=== PATIENT | female | born 1985 | race Caucasian/White ===

== ENCOUNTER 2024-04-16 09:37 | Outpatient (AMB) | payer OTHER, SELFPAY ==
--- NOTE | 2024-04-16 09:31 | A.OFFPC_ITS ---
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 Intake Note: New patient visit Running Specialist Required: No Allergies No Known Allergies [No Known Allergies*] Allergy (Verified 04/16/24 09:32) Tobacco use date assessed: 04/16/24 Dental Screening Dental Screen Date: 04/16/24 Did you have a dental visit in the last 12 months?: No Did you have a dental problem in the last 6 months where you did not have access to dental care?: No Was dental information given to patient?: No HPI HPI Comments History of Present Illness Details The patient is a 39 year old female with a past medical history of allergies, COVID 19 presenting to [facility] She had COVID after which she has been experiencing fatigue, polyarthralgia, brain fog. Discussed qEEG, stimulants, wellbutrin, LDN. Labs ordered ROS see HPI PHYSICAL EXAM: GENERAL: Alert and oriented x 3. NAD EYES: EOMI. Anicteric. HENT: Moist mucous membranes. No scleral icterus. No cervical lymphadenopathy. LUNGS: Clear to auscultation bilaterally. CARDIOVASCULAR: Regular rate and rhythm. No murmur. No JVD. ABDOMEN: Soft, non-tender +bs EXTREMITIES: No edema. Non-tender. SKIN: No rashes or lesions. Warm. NEUROLOGIC: No focal neurological deficits. CN II-XII grossly intact PSYCHIATRIC: Cooperative. Appropriate mood and affect [facility] Medical History (Updated 04/16/24 @ 10:51 by Christy Bowman MD) Asthma Allergic rhinitis Surgical History (Updated 04/16/24 @ 09:35 by Marilee Traylor CMA) History of dilatation and curettage H/O cone biopsy of cervix Family History (Updated 04/16/24 @ 09:34 by Marilee Traylor CMA) Mother Dementia Father Diabetes Hyperlipidemia Social History (Updated 04/16/24 @ 09:33 by Marilee Traylor CMA) Housing: House Patient Tobacco Use Status: Former Tobacco user (quit over 10 years ago) Cigarettes Per Day: 5 Years Smoked: 4 e-Cigarette/Vaping Use: Never Used Second Hand Smoke Exposure: No service: No Current occupational status: employed 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 How often do you have a drink containing alcohol?: Monthly or less 2. How many drinks containing alcohol do you have on a typical day when you are drinking?: 3 or 4 3. How often do you have six or more drinks on one occasion?: Never Total Score: 2 Physical exam (Primary Care) Vital Signs: Last Vital Signs Temp 98.2 F 04/16/24 09:49 Pulse 68 04/16/24 09:49 Resp 12 04/16/24 09:49 BP 94/68 04/16/24 09:49 Pulse Ox 98 04/16/24 09:49 Oxygen Delivery Method Room Air 04/16/24 09:49 BMI result Body Mass Index 30.7 Tobacco/Smoking Status: Tobacco use Status Tobacco use date assessed 04/16/24 04/16/24 09:36 Patient Tobacco Use Status Former Tobacco user (quit 04/16/24 09:53 over 10 years ago) e-Cigarette/Vaping Use Never Used 04/16/24 09:36 Assessment and Plan Assessment & Plan (1) Polyarthralgia: Code(s): M25.50 - Pain in unspecified joint Plan: Labs ordered. Trial LDN (2) Post covid-19 condition, unspecified: Code(s): U09.9 - Post COVID-19 condition, unspecified Plan: Start wellbutrin 150 daily for 7 days, then increase to 300mg daily. LDN ordered Short term follow up Plan 39 y/o to establish care. Past medical, surgical, social and family history reviewed. Chart updated. Orders: Orders TSH reflex Free T4 04/16/24 R41.840 - Attention and concentration deficit, R53.83 - Other fatigue, R63.5 - Abnormal weight gain, U09.9 - Post COVID-19 condition, unspecified Vitamin B12 and Folate 04/16/24 R41.840 - Attention and concentration deficit, R53.83 - Other fatigue, R63.5 - Abnormal weight gain, U09.9 - Post COVID-19 condition, unspecified IRON PROFILE 04/16/24 R41.840 - Attention and concentration deficit, R53.83 - Other fatigue, R63.5 - Abnormal weight gain, U09.9 - Post COVID-19 condition, unspecified Rheumatoid Factor 04/16/24 M25.50 - Pain in unspecified joint, R53.83 - Other fatigue, R63.5 - Abnormal weight gain Erythrocyte Sedimentation Rate 04/16/24 M25.50 - Pain in unspecified joint, R53.83 - Other fatigue, R63.5 - Abnormal weight gain Complete Blood Count Auto Diff 04/16/24 R41.840 - Attention and concentration deficit, R53.83 - Other fatigue, R63.5 - Abnormal weight gain, U09.9 - Post COVID-19 condition, unspecified Comprehensive Met. Panel 04/16/24 R41.840 - Attention and concentration deficit, R53.83 - Other fatigue, R63.5 - Abnormal weight gain, U09.9 - Post COVID-19 condition, unspecified Lipid Panel 04/16/24 R41.840 - Attention and concentration deficit, R53.83 - Other fatigue, R63.5 - Abnormal weight gain, U09.9 - Post COVID-19 condition, unspecified Lyme IgG/IgM w/reflex to WB 04/16/24 R41.840 - Attention and concentration deficit, R53.83 - Other fatigue, R63.5 - Abnormal weight gain, U09.9 - Post COVID-19 condition, unspecified Cyclic Citrullinated Peptide 04/16/24 M25.50 - Pain in unspecified joint, R53.83 - Other fatigue, R63.5 - Abnormal weight gain Magnesium 04/16/24 E83.40 - Disorders of magnesium metabolism, unspecified Medications: New lorazepam 0.5 mg PO BID PRN 60 tabs 0RF anxiety 30 days naltrexone 3 mg (2 x 1.5 mg) PO DAILY 180 caps 3RF 90 days M25.50 - Pain in unspecified joint, R41.840 - Attention and concentration deficit, U09.9 - Post COVID-19 condition, unspecified bupropion HCl XL 150 mg PO DAILY 7 tabs 0RF bupropion HCl XL 300 mg PO DAILY 90 tabs 3RF Coding Level of Care Code New Pt Level 4 (26102) Complex EM visit Add On G2211 Diagnoses Polyarthralgia M25.50 Post covid-19 condition, unspecified U09.9
[2024-04-16 09:49] VITALS: BP 94/68; PULSE 68; RESP 12; TEMP 36.8; O2SAT 98; BMI 30.7
== END 2024-04-16 10:56 | disposition home or self-care (01) ==
PROVIDERS: Visit Provider Internal Medicine
DX: M25.50 Pain in unspecified joint (principal); U09.9 Post COVID-19 condition, unspecified

== ENCOUNTER → 2024-04-16 09:37 | Outpatient (BNVA) | payer OTHER, SELFPAY | PROVIDERS: Visit Provider Internal Medicine | DX: M25.50 Pain in unspecified joint (principal); U09.9 Post COVID-19 condition, unspecified | CPT/HCPCS: 99202 ==

== ENCOUNTER 2024-04-16 11:05 | Outpatient (REF) | payer OTHER, SELFPAY ==
[2024-04-16 14:40] LABS: MANUAL DIFF FLAG NO
[2024-04-16 14:43] LABS: Basophils Percent Auto 0.8 % (0-2); Eosinophils Absolute Auto 0.1 X10*3/uL (0.0-0.4); Eosinophils Percent Auto 1.6 % (0-4); Hematocrit 37.6 % (37.0-47.0); Hemoglobin 12.7 g/dl (12.0-16.0); Imm Gran Abs Auto 0.03 X10*3/uL (0.00-0.03); Imm Gran Pct Auto 0.6 % (0.0-0.4); Lymphocytes Absolute Auto 1.5 X10*3/uL (1.2-4.9); Lymphocytes Percent Auto 29.6 % (20-40); Mean Corpuscular HGB Conc 33.8 g/dl (31.0-35.0); Mean Corpuscular Volume 94.7 fL (80.0-98.0); Mean Platelet Volume 10.3 fL (9.4-12.3); Monocytes Absolute Auto 0.5 X10*3/uL (0.1-1.2); Monocytes Percent Auto 9.3 % (2-11); Neutrophils Absolute Auto 2.9 x10*3/uL (2.0-8.3); Neutrophils Percent Auto 58.1 % (45-73); Platelet Count 296 X10*3/uL (160-400); Red Blood Count 3.97 X10*6/uL (4.20-5.50); Red Cell Distribution Width 12.5 % (11.0-16.0)
[2024-04-16 15:29] LABS: Erythrocyte Sedimentation Rate 4 MM/HR (0-20)
[2024-04-16 17:44] LABS: Rheumatoid Factor < 13.0 IU/mL (<15.0)
[2024-04-16 18:21] LABS: Folate 9.4 ng/mL (> or = 4.0); Vitamin B12 565 pg/mL (200-900)
[2024-04-16 18:29] LABS: Alanine Aminotransferase 16 U/L (0-31); Albumin Level 4.5 g/dL (3.5-5.0); Alkaline Phosphatase 50 U/L (39-117); Anion Gap 11 (12-20); Aspartate Amino Transferase 16 U/L (5-31); Bilirubin Total 0.5 mg/dL (0.0-1.0); Blood Urea Nitrogen 13 mg/dL (9-16); Calcium 9.4 mg/dL (8.4-10.2); Carbon Dioxide 26 mmol/L (22-29); Chloride 106 mmol/L (96-108); Cholesterol 175 mg/dL (<200); Estimated Glomerular Filt Rate > 60; Glucose Random 83 mg/dL (60-115); HDL Cholesterol 70 mg/dL (>40); Iron 123 mcg/dL (30-160); LDL Cholesterol Calculated 85 mg/dL (<100); Magnesium 2.2 mg/dL (1.6-2.6); Percent Iron Saturation 40 % (15-50); Potassium 4.1 mmol/L (3.3-5.1); Sodium 139 mmol/L (135-145); TSH reflex Free T4 1.45 uIU/mL (0.32-4.0); Total Iron Binding Capacity 306 mcg/dL (228-428); Total Protein 7.2 g/dL (6.5-8.0); Triglycerides 102 mg/dL (<150); Unsaturated Iron Binding 183 ug/dL
[2024-04-17 20:07] LABS: Lyme Abs Screen <0.90 index
[2024-04-18 06:24] LABS: Cyclic Citrullinated Peptide <16 UNITS
== END 2024-04-16 11:06 | disposition home or self-care (01) ==
LOC: HO.WFDLDS 11:05
PROVIDERS: Visit Provider Internal Medicine
DX: R41.840 Attention and concentration deficit (principal); U09.9 Post COVID-19 condition, unspecified; R53.83 Other fatigue; R63.5 Abnormal weight gain; M25.50 Pain in unspecified joint; E83.40 Disorders of magnesium metabolism, unspecified
CPT/HCPCS: 36415; 80053; 80061; 82607; 82746; 83540; 83735; 84443; 85025; 85652; 86200; 86431; 86617; 86618

== ENCOUNTER → 2024-05-20 16:00 | Outpatient (AMB) | payer OTHER, SELFPAY ==
--- NOTE | 2024-05-20 15:46 | MHC.PC.OV ---
Intake Visit Reasons: f/up 1/2 hour telephone or in person Intake Note: Medication follow up Allergies No Known Allergies [No Known Allergies*] Allergy (Verified 05/20/24 15:56) Tobacco use date assessed: 04/16/24 Dental Screening Dental Screen Date: 04/16/24 HPI HPI Comments History of Present Illness Details The patient is a 39 year old female with a past medical history of allergies, COVID 19 presenting for follow up Last visit to establish care She had COVID after which she has been experiencing fatigue, polyarthralgia, brain fog. Discussed qEEG, stimulants, wellbutrin, LDN. Labs ordered Labs reviewed and normal She started wellbutrin-she does feel improvement in concentration and energy on 150mg daily. She has not picked up the LDN yet but does plan on doing so ROS see HPI PHYSICAL EXAM: telehealth [facility] Medical History (Updated 05/23/24 @ 09:57 by Christy Bowman MD) Asthma Allergic rhinitis Surgical History (Updated 04/16/24 @ 09:35 by Marilee Traylor CMA) History of dilatation and curettage H/O cone biopsy of cervix Family History (Updated 04/16/24 @ 09:34 by Marilee Traylor CMA) Mother Dementia Father Diabetes Hyperlipidemia Social History (Updated 04/16/24 @ 09:33 by Marilee Traylor CMA) Housing: House Patient Tobacco Use Status: Former Tobacco user (quit over 10 years ago) Cigarettes Per Day: 5 Years Smoked: 4 e-Cigarette/Vaping Use: Never Used Second Hand Smoke Exposure: No service: No Current occupational status: employed 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 Current occupational exposures/hazards: No Cognitive needs: No Hearing needs: No Vision needs: No Physical exam (Primary Care) Tobacco/Smoking Status: Tobacco use Status Tobacco use date assessed 04/16/24 05/20/24 15:47 Patient Tobacco Use Status Former Tobacco user (quit 05/20/24 15:47 over 10 years ago) e-Cigarette/Vaping Use Never Used 05/20/24 15:47 Telehealth Telehealth [facility]health [facility] Location of provider rendering services: practice address Location of patient: address on file Patient Identification confirmed using: Name, : Yes Telehealth method: voice only Patient verbally consented to treatment: Yes Patient verbally consented to billing insurance company: Yes Patient informed of any privacy concerns related to visit: Yes Minutes spent on Phone/Video with Pt.: 23 Coding Level of Care Code Est Pt Level 4 (77471) Diagnoses Other post infection and related fatigue syndromes G93.39 Fatigue type: other post infection and related fatigue syndromes Post-COVID chronic concentration deficit R41.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 She will try LDN (2) Post-COVID chronic concentration deficit: Code(s): R41.840 - Attention and concentration deficit; U09.9 - Post COVID-19 condition, unspecified Category: Medical Plan: see above Medications: Refilled bupropion HCl XL 150 mg PO DAILY 90 tabs 3RF [naltrexone 2mg] Naltrexone 2mg oral daily Dispense 90 day supply 180mg 180 ea 3RF M25.50 - Pain in unspecified joint, U09.9 - Post COVID-19 condition, unspecified Discontinued bupropion HCl XL Discontinued Reason: Doctor's Order 300 mg PO DAILY 90 tabs 3RF
== END ==
LOC: HO.HMCFM 16:00
PROVIDERS: PCP Internal Medicine; Visit Provider Internal Medicine
DX: G93.39 Other post infection and related fatigue syndromes (principal); R41.840 Attention and concentration deficit; U09.9 Post COVID-19 condition, unspecified

== ENCOUNTER → 2024-05-20 16:00 | Outpatient (BNVA) | payer OTHER, SELFPAY | PROVIDERS: PCP Internal Medicine; Visit Provider Internal Medicine | DX: U09.9 Post COVID-19 condition, unspecified (principal); G93.39 Other post infection and related fatigue syndromes; R41.840 Attention and concentration deficit; M25.50 Pain in unspecified joint | CPT/HCPCS: 99212 ==

== ENCOUNTER 2024-06-11 13:53 | Outpatient (AMB) | payer OTHER, SELFPAY ==
--- NOTE | 2024-06-11 14:03 | MHC.PC.OV ---
Vital Signs 06/11/24 14:05 Height 5 ft 1.1 in Weight 155 lb BMI 29.2 BP 102/64 Blood Pressure Location Lt brachial Position Sitting Pulse 83 Pulse Source Pulse Oximeter Pulse Oximetry (%) 96 Oxygen Delivery Method Room Air Intake Visit Reasons: Regular visit , coughing Intake Note: Cyst on left hand. 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 The cyst has been recurrent for the past 10 to 15 years, fluctuating in presence. Recently, it has been present for approximately one month, with exacerbation primarily occurring at night over the past three weeks. The patient initially described the pain as sharp, which later evolved into a more generalized ache. The cyst is located on her dominant, left hand, causing discomfort during daily activities. In the past, she applied self-treatment by manually impacting the cyst, but it has recurred She had COVID after which she has been experiencing fatigue, polyarthralgia, brain fog. Discussed qEEG, stimulants, wellbutrin, LDN. Labs ordered Labs reviewed and normal She started wellbutrin-she does feel improvement in concentration and energy on 150mg daily. She has not picked up the LDN yet but does plan on doing so ROS see HPI PHYSICAL EXAM: GENERAL: Alert and oriented x 3. NAD EYES: EOMI. Anicteric. HENT: Moist mucous membranes. No scleral icterus. No cervical lymphadenopathy. LUNGS: Clear to auscultation bilaterally. CARDIOVASCULAR: Regular rate and rhythm. No murmur. No JVD. ABDOMEN: Soft, non-tender +bs EXTREMITIES: No edema. Non-tender. SKIN: 1cm cyst with venous discoloration of left palm NEUROLOGIC: No focal neurological deficits. CN II-XII grossly intact PSYCHIATRIC: Cooperative. Appropriate mood and affect [facility] Medical History (Updated 06/11/24 @ 14:19 by Christy Bowman MD) Asthma Allergic rhinitis Surgical History (Updated 04/16/24 @ 09:35 by Marilee Traylor CMA) History of dilatation and curettage H/O cone biopsy of cervix Family History (Updated 04/16/24 @ 09:34 by Marilee Traylor CMA) Mother Dementia Father Diabetes Hyperlipidemia Social History (Updated 06/11/24 @ 14:05 by Marilee Traylor CMA) Housing: House Alcohol intake: current Patient Tobacco Use Status: Former Tobacco user (quit over 10 years ago) Cigarettes Per Day: 5 Years Smoked: 4 e-Cigarette/Vaping Use: Never Used Second Hand Smoke Exposure: No Substance Use Type: Marijuana service: No Current occupational status: employed 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 [employer] Current occupational exposures/hazards: No Cognitive needs: No Hearing needs: No Vision needs: No Questionnaire Thrive Questionnaire Date Thrive assessed: 04/16/24 I am a: Patient What is your living situation today?: I have a steady place to live Within the past 12 months, did the food you bought not last and you didn't have the money to get more?: Never true Within the past 12 months, did you worry whether your food would run out before you got money to buy more?: Never true Do you have trouble paying for medicines?: No Do you have trouble getting transportation to medical appointments?: No Do you have trouble paying your heating and electricity bill?: No Do you have trouble taking care of your child, family member or friend?: No Do you have trouble with day-to-day activities such as bathing, preparing meals, shopping, managing finances, etc.?: No Are you currently unemployed and looking for a job?: No Are you interested in more education?: No Please select the resources that you would like help with: None Currently or been in a relationship where the following occur: No concerns reported THRIVE Score: 0 ANTELMO-7 AMB Questionnaire ANTELMO-7 Becoming easily annoyed or irritable: 2 = More than half the days Source: Developed by Drs. Keyur Christie, Kelsy Jon, Froylan Yeh and colleagues, with an educational mika from [employer]. Physical exam (Primary Care) Vital Signs: Last Vital Signs Pulse 83 06/11/24 14:05 BP 102/64 06/11/24 14:05 Pulse Ox 96 06/11/24 14:05 Oxygen Delivery Method Room Air 06/11/24 14:05 BMI result Body Mass Index 29.2 Tobacco/Smoking Status: Tobacco use Status Tobacco use date assessed 04/16/24 06/11/24 14:08 Patient Tobacco Use Status Former Tobacco user (quit 06/11/24 14:08 over 10 years ago) e-Cigarette/Vaping Use Never Used 06/11/24 14:08 Thrive Assessment: Date of Thrive Assessment Date Thrive assessed 04/16/24 06/11/24 14:08 Currently or been in a relationship where the following occur: No concerns reported Coding Level of Care Code Est Pt Level 4 (46237) Diagnoses Left hand pain M79.642 Assessment & Plan Assessment & Plan (1) Left hand pain: Code(s): M79.642 - Pain in left hand Category: Medical Plan: Referral to hand surgery placed for evaluation Orders: Referrals Hand Surgery Referral M79.642 - Pain in left hand, M85.649 - Other cyst of bone, unspecified hand
[2024-06-11 14:05] VITALS: BP 102/64; PULSE 83; O2SAT 96; BMI 29.2
== END 2024-06-11 14:26 | disposition home or self-care (01) ==
PROVIDERS: PCP Internal Medicine; Visit Provider Internal Medicine
DX: M79.642 Pain in left hand (principal)

== ENCOUNTER → 2024-06-11 13:53 | Outpatient (BNVA) | payer OTHER, SELFPAY | PROVIDERS: PCP Internal Medicine; Visit Provider Internal Medicine | DX: M79.642 Pain in left hand (principal) | CPT/HCPCS: 99212 ==